=== PATIENT | female | born 1955 | race African-American/Black ===

== ENCOUNTER → 2016-07-15 | Outpatient (CLI) | payer BC ==
--- NOTE | 2016-07-15 16:20 | RAD ---
Exam performed: 2 views chest. History: Cough and chest pain in the midline upper chest with congestion for 4 weeks. Date of service: 07/15/16. Comparison: None available PA and lateral views chest findings: Heart size and mediastinal silhouette is within limits of normal. Bilateral hilar fullness. Lungs are essentially clear. No focal infiltrates, effusion or pneumothorax seen. Bones are normal Impression: Bilateral hilar fullness may be related to Enlarged bilateral pulmonary arteries or bilateral hilar lymph nodes. If symptoms persist, evaluation with CT angiogram chest may be obtained.
== END | disposition home or self-care (01) ==
LOC: RAD 15:45
PROVIDERS: ATTEND Family Medicine
DX: R05 Cough (principal)
CPT/HCPCS: 71020

== ENCOUNTER 2017-08-30 12:13 | Emergency (ER) | payer BC | END 2017-08-30 14:15 | disposition home or self-care (01) | LOC: ER 14:15 | DX: M54.12 Radiculopathy, cervical region (principal); M54.6 Pain in thoracic spine; M79.602 Pain in left arm; M79.601 Pain in right arm | CPT/HCPCS: 72040; 72072; 73130; 99284 ==